=== PATIENT | female | born 1955 ===

== ENCOUNTER 2023-02-14 08:30 | Outpatient (CLI) | payer OTHER | END 2023-02-14 08:48 | disposition home or self-care (01) | LOC: RX STUDY 08:30 → RAD 08:30 → RX STUDY 08:48 → RAD 08:48 | PROVIDERS: ATTEND Internal Medicine Gastroenterology | DX: R10.13 Epigastric pain (principal) ==

== ENCOUNTER 2023-03-06 07:34 | Outpatient (CLI) | payer OTHER | END 2023-03-06 07:35 | disposition home or self-care (01) | LOC: NUCLEAR 07:34 | PROVIDERS: ATTEND Internal Medicine Gastroenterology | DX: K31.84 Gastroparesis (principal) | CPT/HCPCS: 78264; A9541 ==